=== PATIENT | female | born 1955 | race Caucasian/White ===

== ENCOUNTER → 2021-03-23 | Outpatient (CLI) | payer MEDICARE, OTHER ==
[~2021-03-23] MED LIST: REGADENOSON 0.4 MG/5 ML DISP.SYRIN. IV ONE
--- NOTE | 2021-03-23 16:13 | CARD ---
MR#: [id number] Date of Study: 03/23/2021 Ordering Physician: NIKI RENTERIA, Referring Physician: NIKI RENTERIA, Tech: Radha Howard RDCS APPROVED REPORT EXAM: Two-dimensional and M-mode echocardiogram with Doppler and color Doppler. Other Information Quality : Technically Limited INDICATION Chest Pain 2D DIMENSIONS Left Atrium(2D)3.9 (1.6-4.0cm)IVSd0.8 (0.7-1.1cm) Aortic Root(2D)3.2 (2.0-3.7cm)LVDd4.8 (3.9-5.9cm) LVOT Diameter2.8 (1.8-2.4cm)PWd0.9 (0.7-1.1cm) LVDs3.9 (2.5-4.0cm)FS (%) 18.3 % SV40.7 mlLVEF(%)37.9 (>50%) Aortic Valve AoV Peak Donavan.147.4cm/sAoV VTI37.1cm AO Peak GR.8.7mmHgLVOT Peak Donavan.110.4cm/s AO Mean GR.5mmHgAVA (VMAX)4.45cm2 MIKI (VTI)4.20cm2 Mitral Valve MV E Ydjhwlvy64.3cm/sMV DECEL BPUT733ui MV A Urgxpiuk03.8cm/sE/A Ratio0.8 Tricuspid Valve TR P. Lzlvfckh504iy/sRAP CRIWVBRX61zqAf TR Peak Gr.76msMhJCUF85uzAg Pulmonary Vein S1 Suhjfebz08.7cm/sD2 Zwdigkqp13.8cm/s LEFT VENTRICLE The left ventricle is normal size. There is normal left ventricular wall thickness. The left ventricu lar systolic function is normal. The Ejection Fraction is 55-60%. There is normal LV segmental wall m otion. Transmitral Doppler flow pattern is Grade I-abnormal relaxation pattern. RIGHT VENTRICLE The right ventricle is normal size. The right ventricular systolic function is normal. ATRIA The left atrium size is normal. The right atrium is mildly dilated. The interatrial septum is intact with no evidence for an atrial septal defect or patent foramen ovale as noted on 2-D or Doppler imagi ng. AORTIC VALVE The aortic valve is moderately thickened but opens well. Doppler and Color Flow revealed mild aortic regurgitation. There is no significant aortic valvular stenosis. MITRAL VALVE The mitral valve is calcified but opens well. There is no evidence of mitral valve prolapse. There is no mitral valve stenosis. Doppler and Color-flow revealed mild mitral regurgitation. TRICUSPID VALVE The tricuspid valve is normal in structure and function. Doppler and Color Flow revealed mild tricusp id regurgitation. There is moderate pulmonary hypertension. The PA pressure was estimated at 47 mmHg. There is no tricuspid valve stenosis. PULMONIC VALVE The pulmonic valve is not well visualized. Doppler and Color Flow revealed mild pulmonic valvular reg urgitation. There is no pulmonic valvular stenosis. GREAT VESSELS The aortic root is normal in size. The ascending aorta is not well seen. The IVC is dilated and colla pses <50% with inspiration. PERICARDIAL EFFUSION There is no evidence of significant pericardial effusion. Critical Notification Critical Value: No <Conclusion> The left ventricular systolic function is normal. The Ejection Fraction is 55-60%. There is normal LV segmental wall motion. Transmitral Doppler flow pattern is Grade I-abnormal relaxation pattern. Mild aortic regurgitation. Mild mitral regurgitation. Mild tricuspid regurgitation. The PA pressure was estimated at 47 mmHg. There is no evidence of significant pericardial effusion. Signed by : Niki Renteria, Electronically Approved : 03/23/2021 16:13:16
--- NOTE | 2021-03-24 11:53 | RAD ---
MR#: [id number] Date of Study: 03/24/2021 Ordering Physician: INKI RENTERIA, Referring Physician: LISANDRA CHAVES Tech: RT Rahul SavageR) (N) APPROVED REPORT Test Type: Pharmacological Stress Nurse/Tech: Luisana Alcocer R.N. Test Indications: chest pain Cardiac History: none Medications: see ehr Medical History: see ehr Resting ECG: SR with pacs Resting Heart Rate: 67 bpm Resting Blood Pressure: 137/53mmHg Pretest Chest Pain: No chest pain Nurse/Tech Notes lungs cta, heart tones regular Consent: The procedure was explained to the patient in lay terms. Informed consent was witnessed. Augustin eout was entered into [employer] History and Stress Test performed by RT Rahul SavageR) (N) Pharm. Details Pharmacologic stress testing was performed using 0.4mg per 5ml of regadenoson given intravenously ove r 7-10 seconds. Stress Symptoms No chest pain or symptoms. POST EXERCISE Reason for Termination: Infusion complete Target HR: No Max HR: 94 bpm Max Blood Pressure: 124/49mmHg Chest Pain: No. Arrhythmia: Yes. PACs intermittant ST Change: No. INTERPRETATION Stress EKG Conclusion: Baseline EKG showed sinus rhythm. No ischemic changes at peak stress. Few PA C's without any significant arrhythmias. Imaging Protocol IMAGE PROTOCOL: Rest Tc-99m/stress Tc-99m 2 days Rest: Stress: Viability: Radiopharm.Tc99m KvvqxfwrtOl65a Sestamibi Dose32.8mCi 30mCi Duration 13min. 13min. Img Date 03/23/2021 03/24/2021 Inj-Img Fyoo24lcm. 60min. Rest Admin Site:[facility] - Right AntecubitalAdministrator:SURESH Sunshine, ARRT (R)(N) Stress Admin Site: IV - Left AntecubitalAdministrator: RT Rahul SavageR)(N) STRESS DATA End Diast. Vol.114.0mlLVEDV index BSA60.0ml End Syst. Vol.32.0mlLVESV index BSA17.0ml Myocardial Wxks982.0gEject. Btmvufdi99.0% Stress Scores Regional WT0.00Summed WT4.00 Regional WM0.00Summed WM0.00 Study quality was good. Left Ventricular size was Normal at Rest and Stress. Lung uptake was . Left Ventricular ejection fraction is 71%. The rest and stress images show normal perfusion, normal contraction and thickening. LV Perf. Quant 17 Seg. SSS1.00 17 Seg. SRS0.00 17 Seg. SDS1.00 Stress Defect Extent (% LAD)4.40Rest Defect Extent (% LAD)0.00Rev. Defect Extent (% LAD)4.40 Stress Defect Extent (% LCX) 0.00Rest Defect Extent (% LCX)0.00Rev. Defect Extent (% LCX)0.00 Stress Defect Extent (% RCA)0.00Rest Defect Extent (% RCA)0.00Rev. Defect Extent (% RCA)0.00 Stress Defect Extent (% TAVO)2.00Rest Defect Extent (% TAVO)0.00Rev. Defect Extent (% TAVO)2.00 Conclusion 1. Regadenoson cardioisotope stress test did not show any evidence of ischemia or infarct. 2. Normal left ventricular systolic function with ejection fraction calculated at 71%. 3. Low risk for cardiac events. Signed by : Niki Renteria, Electronically Approved : 03/24/2021 11:53:12
== END ==
LOC: NM 07:30
PROVIDERS: ATTEND Internal Medicine Cardiovascular Disease
DX: I08.8 Other rheumatic multiple valve diseases (principal); I27.20 Pulmonary hypertension, unspecified
CPT/HCPCS: 78452; 93017; 93306; A9500; J2785

== ENCOUNTER → 2022-01-03 | Outpatient (CLI) | payer MEDICARE, OTHER ==
--- NOTE | 2022-01-03 14:12 | KCIC ---
EXAM: Right lower extremity venous Doppler sonogram. HISTORY: Pain and swelling. TECHNIQUE: Lynn scale and color Doppler sonographic evaluation of the right lower extremity veins wit h spectral waveform analysis was performed. FINDINGS: There is normal color flow, normal compressibility and there are normal spectral waveforms in the common femoral, superficial femoral, popliteal, posterior tibial and greater saphenous veins. There is a right popliteal cyst measuring 2.7 x 2.5 x 1.4 cm. IMPRESSION: 1. No Doppler evidence of lower extremity deep venous thrombosis. 2. 2.7 cm right Bermudez's cyst. Electronically signed by: Niyah Tolentino MD (01/03/2022 2:10 PM) [id number]
== END ==
LOC: KCIC US 13:30
PROVIDERS: ATTEND Internal Medicine
DX: M71.21 Synovial cyst of popliteal space [Baker], right knee (principal); M79.604 Pain in right leg; R60.9 Edema, unspecified; U09.9 Post COVID-19 condition, unspecified; I87.2 Venous insufficiency (chronic) (peripheral)
CPT/HCPCS: 93971